=== PATIENT | male | born 1955 | race Caucasian/White ===

== ENCOUNTER 2016-07-25 00:31 | Observation (INO) | payer OTHER ==
[2016-07-25] VITALS (15 sets, daily range): BP systolic 109–145; BP diastolic 76–97; PULSE 61–138; RESP 16–18; TEMP 97.9; O2SAT 95–99
[~2016-07-25 00:31] MED LIST: AMLO5TAB2 PO; LOVA10TA PO
[2016-07-25] MEDS ORDERED: LISI10TA3 PO (01:15)
[2016-07-25] MEDS ORDERED: CLON0.1T PO (01:16)
[2016-07-25] MEDS ORDERED: DILTIAZEM INJ 125 MG in SODIUM CHLORIDE 0.9% INJ 100 ML IV SCH (02:15)
[2016-07-25] MEDS ORDERED: DILTIAZEM HCL 25 MG/5 ML VIAL IV ONE ×2 (02:15)
[2016-07-25] MEDS ORDERED: SODIUM CHLORIDE 0.9% FLUSH 5 ML FLUSH IVF PRN (02:15)
--- NOTE | 2016-07-25 02:28 | RADRPT ---
EXAM DATE/TIME: 07/25/2016 02:21 [facility] COMPARISON: CHEST SINGLE AP, June 18, 2016, 23:33. INDICATIONS : Short of breath. Seizure. MEDICAL HISTORY : None. SURGICAL HISTORY : None. ENCOUNTER: Initial ACUITY: 1 day PAIN SCORE: 0/10 LOCATION: Bilateral chest FINDINGS: A single view of the chest demonstrates the lungs to be symmetrically aerated without evidence of mas s, infiltrate or effusion. The cardiomediastinal contours are unremarkable. Osseous structures are intact. Old stable fracture of the right clavicle. No new or significant changes. CONCLUSION: No acute disease. No significant change has occurred. Jm Cadet MD on July 25, 2016 at 2:26 Board Certified Radiologist. This report was verified electronically.
[2016-07-25 02:36] LABS: AUTOMATED NEUTROPHIL # 9.9 TH/MM3 (1.8-7.7); BASOPHIL # 0.1 TH/MM3 (0-0.2); BASOPHIL % 0.5 % (0.0-2.0); EOSINOPHIL % 0.4 % (0.0-4.0); HEMATOCRIT 43.7 % (39.0-51.0); HEMO FLAGS DIFF FINAL; LYMPH % 13.6 % (9.0-44.0); LYMPHOCYTE # 1.8 TH/MM3 (1.0-4.8); MEAN CELL VOLUME 88.2 FL (80.0-100.0); MONO % 9.8 % (0.0-8.0); NEUT % 75.7 % (16.0-70.0); PLATELET COUNT 215 TH/MM3 (150-450); RED BLOOD COUNT 4.95 MIL/MM3 (4.50-5.90); RED CELL DISTRIBUTION WIDTH 13.7 % (11.6-17.2)
[2016-07-25 02:48] LABS: CREATINE KINASE 278 U/L (39-308)
[2016-07-25 02:49] LABS: APTT (PATIENT) 23.9 SEC (24.3-30.1); PROTHROMBIN TIME - PATIENT 10.7 SEC (9.8-11.6)
[2016-07-25 02:53] LABS: ANION GAP 8 MEQ/L (5-15); BICARBONATE 29.2 MEQ/L (21.0-32.0); BLOOD UREA NITROGEN 32 MG/DL (7-18); CHLORIDE 100 MEQ/L (98-107); GLOMERULAR FILTRATION RATE 36 ML/MIN (>89); POTASSIUM 5.2 MEQ/L (3.5-5.1); SODIUM (NA) 137 MEQ/L (136-145)
[2016-07-25 03:01] LABS: CKMB 4.4 NG/ML (0.5-3.6)
--- NOTE | 2016-07-25 03:27 | PD ---
HPI Chief Complaint: Seizure Time Seen by Provider: 01:20 Travel History International Travel<30 days: No Contact w/Intl Traveler<30days: No Traveled to known affect area: No History of Present Illness HPI The patient's 61 years old. He arrives to ER by private vehicle. He had a seizure-like event tonight. witnessed tonic-clonic activity involving all 4 extremities. He was unresponsive for at least 2-3 minutes. Reportedly he fell out of bed striking his right lower lip causing some bleeding and swelling. No fecal or urinary incontinence was observed. Evidently he had a syncope event about one month ago and was admitted here for evaluation of the same. The somewhat fixated on amlodipine as the source of all his ailments. EMS obtained an EKG on scene revealing A. fib with RVR at a rate of about 100. The blood pressure per EMS record was about 120/80. He refused EMS transport and the convinced him to come. No drug alcohol abuse. History Past Medical History Tetanus Vaccination: < 5 Years Influenza Vaccination: No Past Surgical History Surgical History: No Previous Surgery Social History Alcohol Use: No Tobacco Use: No Allergies-Medications (Allergen,Severity, Reaction): Coded Allergies: No Known Allergies (Unverified , 07/25/16) Reported Meds & Prescriptions Reported Meds & Active Scripts Active Reported Clonidine (Clonidine HCl) 0.1 Mg Tab 0.1 Mg PO Q6HR PRN Lisinopril 10 Mg Tab 10 Mg PO DAILY Lovastatin 10 Mg Tab 10 Mg PO DAILY Review of Systems Except as stated in HPI: all other systems reviewed are Neg Musculoskeletal: Positive: Other (left foot injury with post op boot) Physical Exam Narrative GENERAL: 61-year-old male pleasant well-nourished well-developed speaking full sentences SKIN: Warm and dry. HEAD: Atraumatic. Normocephalic. EYES: Pupils equal and round. No scleral icterus. No injection or drainage. ENT: No nasal bleeding or discharge. Mucous membranes pink and moist. Ecchymosis about the right lower lip with swelling. NECK: Trachea midline. No JVD. CARDIOVASCULAR: Tachycardia. Irregular rhythm. RESP: No accessory muscle use. Clear to auscultation. Breath sounds equal bilaterally. GASTROINTESTINAL: Abdomen soft, non-tender, nondistended. Hepatic and splenic margins not palpable. MUSCULOSKELETAL: Left lower extremity postoperative boot present. No gross abnormality otherwise. NEUROLOGICAL: Awake and alert. No obvious cranial nerve deficits. Motor grossly within normal limits. Five out of 5 muscle strength in the arms and legs. Normal speech. PSYCHIATRIC: Appropriate mood and affect; insight and judgment normal. Data Data Last Documented VS Vital Signs Date Time Temp Pulse Resp B/P Pulse Ox O2 Delivery O2 Flow Rate FiO2 07/25/16 02:44 130/83 135/79 07/25/16 02:44 16 96 Room Air 07/25/16 02:01 125 07/25/16 00:35 97.9 Orders Electrocardiogram (07/25/16 02:06) Basic Metabolic Panel (Bmp) (07/25/16 02:06) Ckmb (Isoenzyme) Profile (07/25/16 02:06) Complete Blood Count With Diff (07/25/16 02:06) Magnesium (Mg) (07/25/16 02:06) Prothrombin Time / Inr (Pt) (07/25/16 02:06) Act Partial Throm Time (Ptt) (07/25/16 02:06) Troponin I (07/25/16 02:06) Chest, Single Ap (07/25/16 02:06) Ecg Monitoring (07/25/16 02:06) Bilateral Bp Monitoring (07/25/16 02:06) Iv Access Insert/Monitor (07/25/16 02:06) Oximetry (07/25/16 02:06) Oxygen Administration (07/25/16 02:06) Sodium Chloride 0.9% Flush (Ns Flush) (07/25/16 02:15) Drug Screen, Random Urine (07/25/16 02:06) Alcohol (Ethanol) (07/25/16 02:06) Diltiazem Inj (Cardizem Inj) (07/25/16 02:15) Diltiazem Inj (Cardizem Inj) (07/25/16 02:15) Diltiazem Inj (Cardizem Inj) (07/25/16 02:15) CKMB (07/25/16 02:25) CKMB% (07/25/16 02:25) Admit Order (Ed Use Only) (07/25/16 03:27) Ct Brain W/O Iv Contrast(Rout) (07/25/16 03:28) Labs Laboratory Tests Test 07/25/16 07/25/16 02:25 03:20 White Blood Count 13.0 TH/MM3 Red Blood Count 4.95 MIL/MM3 Hemoglobin 14.8 GM/DL Hematocrit 43.7 % Mean Corpuscular Volume 88.2 FL Mean Corpuscular Hemoglobin 30.0 PG Mean Corpuscular Hemoglobin 34.0 % Concent Red Cell Distribution Width 13.7 % Platelet Count 215 TH/MM3 Mean Platelet Volume 9.4 FL Neutrophils (%) (Auto) 75.7 % Lymphocytes (%) (Auto) 13.6 % Monocytes (%) (Auto) 9.8 % Eosinophils (%) (Auto) 0.4 % Basophils (%) (Auto) 0.5 % Neutrophils # (Auto) 9.9 TH/MM3 Lymphocytes # (Auto) 1.8 TH/MM3 Monocytes # (Auto) 1.3 TH/MM3 Eosinophils # (Auto) 0.0 TH/MM3 Basophils # (Auto) 0.1 TH/MM3 CBC Comment DIFF FINAL Differential Comment Prothrombin Time 10.7 SEC Prothromb Time International 1.0 RATIO Ratio Activated Partial 23.9 SEC Thromboplast Time Sodium Level 137 MEQ/L Potassium Level 5.2 MEQ/L Chloride Level 100 MEQ/L Carbon Dioxide Level 29.2 MEQ/L Anion Gap 8 MEQ/L Blood Urea Nitrogen 32 MG/DL Creatinine 1.90 MG/DL Estimat Glomerular Filtration 36 ML/MIN Rate Random Glucose 129 MG/DL Calcium Level 8.8 MG/DL Magnesium Level 2.0 MG/DL Total Creatine Kinase 278 U/L Creatine Kinase MB 4.4 NG/ML Troponin I 0.05 NG/ML Ethyl Alcohol Level LESS THAN 3 MG/DL Urine Opiates Screen NEG Urine Barbiturates Screen NEG Urine Amphetamines Screen NEG Urine Benzodiazepines Screen NEG Urine Cocaine Screen NEG Urine Cannabinoids Screen NEG MDM Medical Decision Making Medical Screen Exam Complete: Yes Emergency Medical Condition: Yes Medical Record Reviewed: Yes Differential Diagnosis Arrhythmia, seizure, electrolyte imbalance, metabolic disturbance, intracranial pathology, acute coronary syndrome Narrative Course CBC & BMP Diagram 07/25/16 02:25 Tn 0.04 Toxicology perdue-negative EtOH negative INR 1.0 EKG reveals atrial fibrillation with a rate about 120 Last 24 hours Impressions Chest X-Ray 07/25/16 0206 Signed Impressions: Service Date/Time: Monday, July 25, 2016 02:21 - CONCLUSION: No acute disease. No significant change has occurred. Jm Cadet MD Head CT is unremarkable 20 mg of diltiazem given and the heart rate decreased to about 80 from 130s. The patient has a troponin 0.04 admission for further care and cardiology evaluation considered appropriate. Aspirin given. d/w Dr Clark. Diagnosis Primary Impression: Atrial fibrillation with rapid ventricular response Additional Impressions: Renal insufficiency Seizure Admitting Information Admitting Physician Requests: Observation Bill De La Rosa MD Jul 25, 2016 03:27
[2016-07-25 03:41] LABS: AMPHETAMINE, URINE NEG (NEG); BARBITURATES, URINE NEG (NEG); COCAINE, URINE NEG (NEG)
[2016-07-25] MEDS ORDERED: SODIUM CHLORIDE 0.9% FLUSH 5 ML FLUSH FLUSH PRN (03:45)
--- NOTE | 2016-07-25 04:12 | RADRPT ---
EXAM DATE/TIME: 07/25/2016 04:01 [facility] COMPARISON: CT BRAIN W/O CONTRAST, June 18, 2016, 23:45. INDICATIONS : Seizures. RADIATION DOSE: 42.68 CTDIvol (mGy) MEDICAL HISTORY : Hypertension. SURGICAL HISTORY : None. ENCOUNTER: Initial ACUITY: 1 day PAIN SCALE: 0/10 LOCATION: cranial TECHNIQUE: Multiple contiguous axial images were obtained of the head. Using automated exposure control and adj ustment of the mA and/or kV according to patient size, radiation dose was kept as low as reasonably a chievable to obtain optimal diagnostic quality images. FINDINGS: CEREBRUM: The ventricles are normal for age. No evidence of midline shift, mass lesion, hemorrhage or acute in farction. No extra-axial fluid collections are seen. POSTERIOR FOSSA: The cerebellum and brainstem are intact. The 4th ventricle is midline. The cerebellopontine angle i s unremarkable. EXTRACRANIAL: The visualized portion of the orbits is intact. 1.2 cm sebaceous cyst along the posterior upper neck SKULL: The calvaria is intact. No evidence of skull fracture. CONCLUSION: Unremarkable and stable CT brain compared to the prior study. Jm Cadet MD on July 25, 2016 at 4:09 Board Certified Radiologist. This report was verified electronically.
[2016-07-25] MEDS ORDERED: ASPIRIN 325 MG TAB PO ONE (04:30)
[2016-07-25 06:11] LABS: BICARBONATE 28.3 MEQ/L (21.0-32.0); POTASSIUM 4.2 MEQ/L (3.5-5.1)
--- NOTE | 2016-07-25 07:53 | PD.CONS ---
HPI Service CV Consult Requested By Reason for Consult a-fib Primary Care Physician Elisa Beth DO History of Present Illness Here with HTN and hyperlipidemia for a syncopal episode and a-fib RVR. He states he has been treated for HTN for some time now. He was on switched from lisinopril to amlodipine recently and had side effect on the amlodipine of fatigue and tremors. He went back to the lisinopril and the side effects resolved after about a week. On the night of this syncope his checked his blood pressure and is diastolic pressure was over 100 mmHg and she gave him an additional clonidine. It is after this when he had the event. He denies any chest pain, shortness of breath or palpitations. He does say the after he eats a large meal he has chest pain that radiates up his chest and is associated with fatigue and not feeling well. He never has chest pain with exertion. Review of Systems Consitutional: DENIES: Fatigue, Fever, Chills, Weight gain, Weight loss Eyes: DENIES: Amaurosis Fugax, Change in vision HEENT: DENIES: Lightheadedness, Change in hearing Respiratory: DENIES: See HPI, Cough, Snoring, Shortness of breath, Wheezing, Sputum production Cardiovascular: COMPLAINS OF: See HPI Gastrointestinal: DENIES: Nausea, Vomiting, Change in bowel habits, Reflux, Bloody stools, Melena Genitourinary: DENIES: Urinary incontinence, Difficulty voiding Integumentary: DENIES: Rash Neurologic: DENIES: Tingling or numbness, Memory problems, Poor Balance, Stroke symptoms Musculoskeletal: DENIES: Joint pain, Muscle pain, Limited range of motion, Back pain Psychiatric: DENIES: Anxiety, Depression, Sleep disturbances Hematologic: DENIES: Bruising tendencies, Bleeding tendencies Endocrine: DENIES: Weight gain, Weight loss, Thyroid disease Past Family Social History Allergies: Coded Allergies: No Known Allergies (Unverified , 07/25/16) Past Medical History see HPI Past Surgical History none Reported Medications Clonidine (Clonidine HCl) 0.1 Mg Tab 0.1 Mg PO Q6HR PRN Lisinopril 10 Mg Tab 10 Mg PO DAILY Lovastatin 10 Mg Tab 10 Mg PO DAILY Family History noncontributory Social History Smoked for 2 years in college Denies alcohol or substance abuse Physical Exam Vital Signs Vital Signs Date Time Temp Pulse Resp B/P Pulse Ox O2 Delivery O2 Flow Rate FiO2 07/25/16 05:47 83 16 126/84 95 Room Air 07/25/16 04:09 103 16 129/91 99 Room Air 07/25/16 02:44 130/83 135/79 07/25/16 02:44 16 96 Room Air 07/25/16 02:44 97 Room Air 07/25/16 02:01 125 16 132/86 97 Room Air 07/25/16 01:56 119 16 96 Room Air 07/25/16 00:35 97.9 138 16 129/97 97 Room Air Physical Exam GENERAL: Well-nourished, well-developed patient in no apparent distress. NECK: No JVD. No carotid bruit. CARDIOVASCULAR: IR IR S1/S2 no murmur, rub, or gallop. RESPIRATORY: No accessory muscle use. Clear to auscultation. Breath sounds equal bilaterally. GASTROINTESTINAL: Abdomen soft, non-tender, nondistended. MUSCULOSKELETAL: Extremities without clubbing, cyanosis, or edema. Laboratory Laboratory Tests Test 07/25/16 07/25/16 07/25/16 02:25 03:20 04:44 White Blood Count 13.0 Red Blood Count 4.95 Hemoglobin 14.8 Hematocrit 43.7 Mean Corpuscular Volume 88.2 Mean Corpuscular Hemoglobin 30.0 Mean Corpuscular Hemoglobin 34.0 Concent Red Cell Distribution Width 13.7 Platelet Count 215 Mean Platelet Volume 9.4 Neutrophils (%) (Auto) 75.7 Lymphocytes (%) (Auto) 13.6 Monocytes (%) (Auto) 9.8 Eosinophils (%) (Auto) 0.4 Basophils (%) (Auto) 0.5 Neutrophils # (Auto) 9.9 Lymphocytes # (Auto) 1.8 Monocytes # (Auto) 1.3 Eosinophils # (Auto) 0.0 Basophils # (Auto) 0.1 CBC Comment DIFF FINAL Differential Comment Prothrombin Time 10.7 Prothromb Time International 1.0 Ratio Activated Partial 23.9 Thromboplast Time Sodium Level 137 138 Potassium Level 5.2 4.2 Chloride Level 100 101 Carbon Dioxide Level 29.2 28.3 Anion Gap 8 9 Blood Urea Nitrogen 32 29 Creatinine 1.90 1.66 Estimat Glomerular Filtration 36 43 Rate Random Glucose 129 114 Calcium Level 8.8 8.9 Magnesium Level 2.0 Total Creatine Kinase 278 235 Creatine Kinase MB 4.4 Troponin I 0.05 0.07 Ethyl Alcohol Level LESS THAN 3 Urine Opiates Screen NEG Urine Barbiturates Screen NEG Urine Amphetamines Screen NEG Urine Benzodiazepines Screen NEG Urine Cocaine Screen NEG Urine Cannabinoids Screen NEG Result Diagram: 07/25/16 0225 07/25/16 0444 Assessment and Plan Problem List: (1) Syncope (2) Atrial fibrillation with rapid ventricular response (3) Renal insufficiency Code Status A-fib RVR - start metoprolol 50 mg BID and wean diltiazem to off, get 2D echo atypical chest pain - troponin is likely demand mediated with his a-fib RVR, With his risk factors and atypical chest pain we will get a Lexiscan stress test HTN - we will wait to see what is pressure does with the metoprolol. We should stop the DAI-I with he renal dysfunction El Potter Jul 25, 2016 07:53
[2016-07-25] MEDS: METOPROLOL TARTRATE 50 MG TAB PO SCH ×2 (08:59→21:00)
[2016-07-25] MEDS: SODIUM CHLORIDE 0.9% FLUSH 5 ML FLUSH FLUSH SCH ×2 (09:00→21:00)
--- NOTE | 2016-07-25 10:19 | HHI.HP ---
HPI Service [facility] Hospitalists Primary Care Physician Elisa Beth DO Admission Diagnosis AFib RVR; Seizure Chief Complaint: Seizure Travel History International Travel<30 Days: No Contact w/Intl Traveler <30 Da: No Traveled to Known Affected Are: No History of Present Illness Mr. Overton is a pleasant 61 y/o WM with HTN and hyperlipidemia. He presented to the ED at [facility] [place] on 07/24/16 after a possible seizure episode at home. Pts provides the majority of the history. She states that he had previously been hospitalized in 06/2016 after a syncopal episode which was related to his BP medications. He was taken off his Lisinopril/HCTZ at that time and started on Amlodipine. Pt states that after he was started on the Amlodipine that he started having some "shaking" episodes where he would have episodes of full body shaking that would occur sporadically. Pt was taken off the Amlodipine on and had not had any issues with these shaking episodes since then. Pt was restarted on Lisinopril 5mg po BID and Clonidine PRN. Pt states that he takes the clonidine periodically if his diastolic reading is greater than 100. Yesterday evening his diastolic BP was 106 and he took a Clonidine around 6pm. Then around 7:30pm he took his Lisinopril 5mg evening dose. Pt states that he started having some indigestion and took some TUMS and then around 10:00pm the pt had sudden onset of severe shaking what sounds like tonic-clonic type movement. His moved him to the floor and the event lasted about 1-2 minutes. She states that once this event ended that the pt was not confused but he could not remember what had just happened. He denies any chest pain, shortness of breath or palpitations. Pt was noted to be in A. fib RVR in the ED. Pt was started on a Cardizem gtt. His CE were mildly elevated but flat. He has been seen by Cardiology and is planned for Lexiscan today. Pt has been switched over to Metoprolol po and weaned off the Cardizem gtt. Review of Systems Constitutional: DENIES: Fever, Chills Eyes: DENIES: Vision loss Ears, nose, mouth, throat: DENIES: Hearing loss Respiratory: DENIES: Cough, Sputum production Cardiovascular: DENIES: Chest pain, Palpitations Gastrointestinal: COMPLAINS OF: Reflux, DENIES: Abdominal pain, Constipation, Nausea, Vomiting Genitourinary: DENIES: Dysuria, Nocturia Musculoskeletal: DENIES: Back pain, Neck pain Integumentary: DENIES: Rash Neurologic: COMPLAINS OF: Seizures, DENIES: Abnormal gait, Headache, Localized weakness, Paresthesias, Speech Problems Psychiatric: DENIES: Confusion, Depression Past Family Social History Past Medical History HTN Hyperlipidemia 2D echo (06/19/16): - Estimated EF 55-60% - PA peak pressure 39mmHg Past Surgical History None reported Reported Medications Clonidine (Clonidine HCl) 0.1 Mg PO Q6HR PRN Lisinopril 5MG PO BID Lovastatin 10 Mg PO DAILY Allergies: Coded Allergies: No Known Allergies (Unverified , 07/25/16) Family History Noncontributory Social History Denies any tobacco or alcohol use Occasional marijuana use, but not for the last 2 weeks Physical Exam Vital Signs Vital Signs Date Time Temp Pulse Resp B/P Pulse Ox O2 Delivery O2 Flow Rate FiO2 07/25/16 09:59 61 16 99 Room Air 07/25/16 08:59 88 145/91 07/25/16 07:58 96 16 130/85 98 Room Air 07/25/16 05:47 83 16 126/84 95 Room Air 07/25/16 04:09 103 16 129/91 99 Room Air 07/25/16 02:44 130/83 135/79 07/25/16 02:44 16 96 Room Air 07/25/16 02:44 97 Room Air 07/25/16 02:01 125 16 132/86 97 Room Air 07/25/16 01:56 119 16 96 Room Air 07/25/16 00:35 97.9 138 16 129/97 97 Room Air Physical Exam GENERAL: This is a well-nourished, well-developed patient, in no apparent distress. HEENT: Atraumatic. Normocephalic. No temporal or scalp tenderness. No scleral icterus. Airway patent. NECK: Trachea midline, supple, nontender. CARDIO: Regular RESP: CTA bilaterally. No wheezes, rales, or rhonchi. ABD: +BS, soft, non-tender, nondistended. EXT: Extremities without clubbing, cyanosis, or edema. NEURO: Awake and alert. Motor and sensory grossly within normal limits. Normal speech. Laboratory Laboratory Tests Test 07/25/16 07/25/16 07/25/16 07/25/16 02:25 03:20 04:44 08:37 White Blood Count 13.0 Red Blood Count 4.95 Hemoglobin 14.8 Hematocrit 43.7 Mean Corpuscular Volume 88.2 Mean Corpuscular Hemoglobin 30.0 Mean Corpuscular Hemoglobin 34.0 Concent Red Cell Distribution Width 13.7 Platelet Count 215 Mean Platelet Volume 9.4 Neutrophils (%) (Auto) 75.7 Lymphocytes (%) (Auto) 13.6 Monocytes (%) (Auto) 9.8 Eosinophils (%) (Auto) 0.4 Basophils (%) (Auto) 0.5 Neutrophils # (Auto) 9.9 Lymphocytes # (Auto) 1.8 Monocytes # (Auto) 1.3 Eosinophils # (Auto) 0.0 Basophils # (Auto) 0.1 CBC Comment DIFF FINAL Differential Comment Prothrombin Time 10.7 Prothromb Time International 1.0 Ratio Activated Partial 23.9 Thromboplast Time Sodium Level 137 138 Potassium Level 5.2 4.2 Chloride Level 100 101 Carbon Dioxide Level 29.2 28.3 Anion Gap 8 9 Blood Urea Nitrogen 32 29 Creatinine 1.90 1.66 Estimat Glomerular Filtration 36 43 Rate Random Glucose 129 114 Calcium Level 8.8 8.9 Magnesium Level 2.0 Total Creatine Kinase 278 235 211 Creatine Kinase MB 4.4 Troponin I 0.05 0.07 0.07 Ethyl Alcohol Level LESS THAN 3 Urine Opiates Screen NEG Urine Barbiturates Screen NEG Urine Amphetamines Screen NEG Urine Benzodiazepines Screen NEG Urine Cocaine Screen NEG Urine Cannabinoids Screen NEG Thyroid Stimulating Hormone 1.190 3rd Gen Result Diagram: 07/25/165 07/25/16 0444 Imaging Last Impressions Head CT 07/25/16 0328 Signed Impressions: Service Date/Time: Monday, July 25, 2016 04:01 - CONCLUSION: Unremarkable and stable CT brain compared to the prior study. Jm Cadet MD Chest X-Ray 07/25/16 0206 Signed Impressions: Service Date/Time: Monday, July 25, 2016 02:21 - CONCLUSION: No acute disease. No significant change has occurred. Jm Cadet MD Septic Shock Reassessment Heart: Regular rate and rhythm Lungs: Clear Skin: Warm Peripheral Pulses: Bounding Right Radial Bounding Left Radial Bounding Right Popliteal Bounding Left Popliteal Bounding Right Dorsalis Pedis Bounding Left Dorsalis Pedis Bounding Right Posterior Tibial Bounding Left Posterior Tibial Assessment and Plan Problem List: (1) Seizure Status: Acute Plan: - Pt reported some sore of seizure-like event vs. convulsive syncope - No previous hx of seizures, pt did not appear to be post-ictal, no loss of bowel or bladder function - EEG was just completed, await results - Seizure precautions. - Consult Neurology - Ativan PRN - DVT prophylaxis (2) Atrial fibrillation with rapid ventricular response Status: Acute Plan: - Pt with A. fib RVR, onset is unclear. - Pt was started on Cardizem gtt and then Metoprolol 50mg po Q12H and was weaned off the Cardizem. - Pt to have Lexiscan today - Telemetry - CHADSVASc score of 1 - Pt was on ASA 81mg po daily at home (3) Renal insufficiency Status: Chronic Plan: - Pt with some noted renal insufficiency - He had an outpt workup which reportedly showed hydronephrosis and he has an appt with Urology in 2 days. Assessment and Plan Patient examined. Assessment and plan formulated with Sherrell Mayfield PA-C. I agree with the above. possible hypotension from medication leading to convulsive syncope. afib/rvr new. controlled. currrently hr/bp controlled on metoprolol. nikita neg for ischemia but some reduced lvf. eeg nml. cards following.renal insuff noted. pt says he has some hydro and f/u dr Leblanc for evaluation. Sherrell Mayfield Jul 25, 2016 10:19 Dru Yuan MD Jul 25, 2016 22:07
[2016-07-25] MEDS ORDERED: LORazepam 2 MG/ML VIAL IV PUSH PRN (13:00)
[2016-07-25] MEDS ORDERED: REGADENOSON INJ 0.4 MG/5 ML SYR ONE (14:41)
--- NOTE | 2016-07-25 15:58 | RADRPT ---
EXAM DATE/TIME: 07/25/2016 14:03 [facility] COMPARISON: CHEST SINGLE AP, July 25, 2016, 2:21. INDICATIONS : Syncopal episodes. Abnormal EKG. DOSE: 25.7 mCi Tc99m Myoview at stress. 8.1 mCi Tc99m Myoview at rest. 0.4 mg Lexiscan STRESS SYMPTOMS: Anxious. EJECTION FRACTION: 46% MEDICAL HISTORY : Hypertension. Renal insufficiency. SURGICAL HISTORY : None. ENCOUNTER: Initial ACUITY: 1 day PAIN SCALE: 0/10 LOCATION: Substernal chest TECHNIQUE: The patient underwent pharmacologic stress with infusion of prescribed dose. Continuous ECG tracing was monitored during stress. Gated SPECT imaging was performed after stress and conventional SPECT i maging was performed at rest. The examination was performed on a SPECT/CT scanner, both attenuation and non-corrected datasets were reviewed. FINDINGS: DISTRIBUTION: The maximum perfused segment at stress is in the anterior wall. PERFUSION STUDY: The pattern of perfusion at stress is within normal limits. GATED STUDY: There is mild generalized hypokinesia CONCLUSION: No perfusion defects. Slightly decreased ejection fraction of 46% with mild generalized hypokinesia s uggesting cardiomyopathy. RISK CATEGORY: Low (<1% Annual Mortality Rate) Wallace Mathis MD on July 25, 2016 at 15:54 Board Certified Radiologist. This report was verified electronically.
--- NOTE | 2016-07-25 18:06 | EKG ---
Date Performed: 07/25/2016 Time Performed: 02:24:03 PTAGE: 61 years EKG: PROBABLE ATRIAL FIBRILLATION WITH RAPID VENTRICULAR RATE SEPTAL MYOCARDIAL INFARCTION Nonsp ecific ST-T wave changes. When compared to previous tracing, the patient now appears to Be in atrial fibrillation with rapid ventricular rate. ABNORMAL ECG PREVIOUS TRACING : 06/18/2016 23.31 DOCTOR: Kiana Jerome Interpretating Date/Time 07/25/2016 18:05:52
--- NOTE | 2016-07-25 18:08 | EKG ---
Date Performed: 07/25/2016 Time Performed: 08:31:25 PTAGE: 61 years EKG: ATRIAL FIBRILLATION WITH CONTROLLED VENTRICULAR RATE SEPTAL MYOCARDIAL INFARCTION Nonspecif ic ST-T wave changes. When compared to previous tracing, the patient is now rate Controlled. ABNORMAL ECG PREVIOUS TRACING : 07/25/2016 02.24 DOCTOR: Kiana Jerome Interpretating Date/Time 07/25/2016 18:07:36
--- NOTE | 2016-07-25 18:45 | MG ---
cc: TJ CROWLEY M.D. Sex: M DATE OF STUDY: 07/25/2016 REQUESTING PHYSICIAN: Dr. Clark. HISTORY: An EEG was obtained on this 61 year-old patient with a history of seizure-like activity. MEDICATIONS: Diltiazem. Aspirin. DESCRIPTION: The patient is awake during the study. There is a lot of 10-12 per second alpha rhythms in the central and posterior head regions. There is low amplitude beta activity frontally. Some mild theta rhythms are seen and seems to correlate with probable early drowsiness. The patient later on is obviously drowsy and there is more beta activity and more theta rhythms. Photic stimulation shows bilateral driving response. Hyperventilation was not performed. INTERPRETATION Normal awake and drowsy EEG. Tj Crowley MD [facility] /6:13 PM /6:26 PM
[2016-07-26] VITALS (7 sets, daily range): BP systolic 110–148; BP diastolic 66–96; PULSE 58–87; RESP 17–20; TEMP 97.9–98.2; O2SAT 96–100
[2016-07-26 05:24] LABS: AUTOMATED NEUTROPHIL # 5.1 TH/MM3 (1.8-7.7); BASOPHIL # 0.1 TH/MM3 (0-0.2); BASOPHIL % 0.5 % (0.0-2.0); EOSINOPHIL # 0.2 TH/MM3 (0-0.4); EOSINOPHIL % 1.9 % (0.0-4.0); HEMATOCRIT 44.9 % (39.0-51.0); HEMO FLAGS DIFF FINAL; LYMPH % 33.5 % (9.0-44.0); LYMPHOCYTE # 3.3 TH/MM3 (1.0-4.8); MEAN CELL VOLUME 89.6 FL (80.0-100.0); MEAN CORPUSCULAR HEMOGLOBIN 29.8 PG (27.0-34.0); MEAN CORPUSCULAR HGB CONC 33.3 % (32.0-36.0); MONO % 11.6 % (0.0-8.0); NEUT % 52.5 % (16.0-70.0); PLATELET COUNT 218 TH/MM3 (150-450); RED BLOOD COUNT 5.01 MIL/MM3 (4.50-5.90); RED CELL DISTRIBUTION WIDTH 13.5 % (11.6-17.2); WHITE BLOOD COUNT 9.8 TH/MM3 (4.0-11.0)
[2016-07-26 05:47] LABS: BICARBONATE 30.3 MEQ/L (21.0-32.0); MAGNESIUM 2.1 MG/DL (1.5-2.5); POTASSIUM 4.6 MEQ/L (3.5-5.1)
--- NOTE | 2016-07-26 07:48 | PD.CARD.PN ---
Subjective Subjective Remarks no CV complaints Objective Vital Signs / I&O Vital Signs Date Time Temp Pulse Resp B/P Pulse Ox O2 Delivery O2 Flow Rate FiO2 07/26/16 05:11 98.0 67 17 110/66 96 07/26/16 00:47 64 07/26/16 00:29 97.9 87 18 133/77 98 07/25/16 19:36 97.9 65 16 109/76 97 07/25/16 17:11 87 07/25/16 16:03 99 18 138/87 97 07/25/16 11:42 68 16 136/86 98 Room Air 07/25/16 11:25 71 16 97 Room Air 07/25/16 10:46 16 98 Room Air 07/25/16 10:45 62 16 124/90 98 Room Air 07/25/16 10:19 64 07/25/16 09:59 61 16 99 Room Air 07/25/16 08:59 88 145/91 07/25/16 07:58 96 16 130/85 98 Room Air Physical Exam GENERAL: Well-nourished, well-developed patient in no apparent distress. NECK: No JVD. No carotid bruit. CARDIOVASCULAR: Regular rate and rhythm. S1/S2 no murmur, rub, or gallop. RESPIRATORY: No accessory muscle use. Clear to auscultation. Breath sounds equal bilaterally. GASTROINTESTINAL: Abdomen soft, non-tender, nondistended. MUSCULOSKELETAL: Extremities without clubbing, cyanosis, or edema. Laboratory Laboratory Tests Test 07/25/16 07/26/16 08:37 04:50 Total Creatine Kinase 211 U/L Troponin I 0.07 NG/ML Thyroid Stimulating Hormone 1.190 uIU/ML 3rd Gen White Blood Count 9.8 TH/MM3 Red Blood Count 5.01 MIL/MM3 Hemoglobin 14.9 GM/DL Hematocrit 44.9 % Mean Corpuscular Volume 89.6 FL Mean Corpuscular Hemoglobin 29.8 PG Mean Corpuscular Hemoglobin 33.3 % Concent Red Cell Distribution Width 13.5 % Platelet Count 218 TH/MM3 Mean Platelet Volume 9.3 FL Neutrophils (%) (Auto) 52.5 % Lymphocytes (%) (Auto) 33.5 % Monocytes (%) (Auto) 11.6 % Eosinophils (%) (Auto) 1.9 % Basophils (%) (Auto) 0.5 % Neutrophils # (Auto) 5.1 TH/MM3 Lymphocytes # (Auto) 3.3 TH/MM3 Monocytes # (Auto) 1.1 TH/MM3 Eosinophils # (Auto) 0.2 TH/MM3 Basophils # (Auto) 0.1 TH/MM3 CBC Comment DIFF FINAL Differential Comment Sodium Level 139 MEQ/L Potassium Level 4.6 MEQ/L Chloride Level 104 MEQ/L Carbon Dioxide Level 30.3 MEQ/L Anion Gap 5 MEQ/L Blood Urea Nitrogen 22 MG/DL Creatinine 1.43 MG/DL Estimat Glomerular Filtration 51 ML/MIN Rate Random Glucose 97 MG/DL Calcium Level 9.0 MG/DL Magnesium Level 2.1 MG/DL Assessment and Plan Problem List: (1) Syncope (2) Atrial fibrillation with rapid ventricular response (3) Renal insufficiency Assessment and Plan a-fib - converted to SR. Stress test shows no evidence for ischemia EF 46% await 2D echo to confirm EF. If echo normal home today on metoprolol 50 mg BID and d/c prior antihypertensives El Potter Jul 26, 2016 07:48
--- NOTE | 2016-07-26 08:55 | HHI.PR ---
Subjective Remarks No complaints this morning. Pt converted to NSR on telemetry Pt eating and drinking well Ambulating without difficulty Objective Vitals Vital Signs Date Time Temp Pulse Resp B/P Pulse Ox O2 Delivery O2 Flow Rate FiO2 07/26/16 05:11 98.0 67 17 110/66 96 07/26/16 00:47 64 07/26/16 00:29 97.9 87 18 133/77 98 07/25/16 19:36 97.9 65 16 109/76 97 07/25/16 17:11 87 07/25/16 16:03 99 18 138/87 97 07/25/16 11:42 68 16 136/86 98 Room Air 07/25/16 11:25 71 16 97 Room Air 07/25/16 10:46 16 98 Room Air 07/25/16 10:45 62 16 124/90 98 Room Air 07/25/16 10:19 64 07/25/16 09:59 61 16 99 Room Air 07/25/16 08:59 88 145/91 Result Diagram: 07/26/16 0450 07/26/16 0450 Other Results Laboratory Tests Test 07/25/16 07/25/16 07/25/16 07/25/16 02:25 03:20 04:44 08:37 White Blood Count 13.0 TH/MM3 Red Blood Count 4.95 MIL/MM3 Hemoglobin 14.8 GM/DL Hematocrit 43.7 % Mean Corpuscular Volume 88.2 FL Mean Corpuscular Hemoglobin 30.0 PG Mean Corpuscular Hemoglobin 34.0 % Concent Red Cell Distribution Width 13.7 % Platelet Count 215 TH/MM3 Mean Platelet Volume 9.4 FL Neutrophils (%) (Auto) 75.7 % Lymphocytes (%) (Auto) 13.6 % Monocytes (%) (Auto) 9.8 % Eosinophils (%) (Auto) 0.4 % Basophils (%) (Auto) 0.5 % Neutrophils # (Auto) 9.9 TH/MM3 Lymphocytes # (Auto) 1.8 TH/MM3 Monocytes # (Auto) 1.3 TH/MM3 Eosinophils # (Auto) 0.0 TH/MM3 Basophils # (Auto) 0.1 TH/MM3 CBC Comment DIFF FINAL Differential Comment Prothrombin Time 10.7 SEC Prothromb Time International 1.0 RATIO Ratio Activated Partial 23.9 SEC Thromboplast Time Sodium Level 137 MEQ/L 138 MEQ/L Potassium Level 5.2 MEQ/L 4.2 MEQ/L Chloride Level 100 MEQ/L 101 MEQ/L Carbon Dioxide Level 29.2 MEQ/L 28.3 MEQ/L Anion Gap 8 MEQ/L 9 MEQ/L Blood Urea Nitrogen 32 MG/DL 29 MG/DL Creatinine 1.90 MG/DL 1.66 MG/DL Estimat Glomerular Filtration 36 ML/MIN 43 ML/MIN Rate Random Glucose 129 MG/DL 114 MG/DL Calcium Level 8.8 MG/DL 8.9 MG/DL Magnesium Level 2.0 MG/DL Total Creatine Kinase 278 U/L 235 U/L 211 U/L Creatine Kinase MB 4.4 NG/ML Troponin I 0.05 NG/ML 0.07 NG/ML 0.07 NG/ML Ethyl Alcohol Level LESS THAN 3 MG/DL Urine Opiates Screen NEG Urine Barbiturates Screen NEG Urine Amphetamines Screen NEG Urine Benzodiazepines Screen NEG Urine Cocaine Screen NEG Urine Cannabinoids Screen NEG Thyroid Stimulating Hormone 1.190 uIU/ML 3rd Gen Test 07/26/16 04:50 White Blood Count 9.8 TH/MM3 Red Blood Count 5.01 MIL/MM3 Hemoglobin 14.9 GM/DL Hematocrit 44.9 % Mean Corpuscular Volume 89.6 FL Mean Corpuscular Hemoglobin 29.8 PG Mean Corpuscular Hemoglobin 33.3 % Concent Red Cell Distribution Width 13.5 % Platelet Count 218 TH/MM3 Mean Platelet Volume 9.3 FL Neutrophils (%) (Auto) 52.5 % Lymphocytes (%) (Auto) 33.5 % Monocytes (%) (Auto) 11.6 % Eosinophils (%) (Auto) 1.9 % Basophils (%) (Auto) 0.5 % Neutrophils # (Auto) 5.1 TH/MM3 Lymphocytes # (Auto) 3.3 TH/MM3 Monocytes # (Auto) 1.1 TH/MM3 Eosinophils # (Auto) 0.2 TH/MM3 Basophils # (Auto) 0.1 TH/MM3 CBC Comment DIFF FINAL Differential Comment Sodium Level 139 MEQ/L Potassium Level 4.6 MEQ/L Chloride Level 104 MEQ/L Carbon Dioxide Level 30.3 MEQ/L Anion Gap 5 MEQ/L Blood Urea Nitrogen 22 MG/DL Creatinine 1.43 MG/DL Estimat Glomerular Filtration 51 ML/MIN Rate Random Glucose 97 MG/DL Calcium Level 9.0 MG/DL Magnesium Level 2.1 MG/DL Imaging Last Impressions Head CT 07/25/16327 Signed Impressions: Service Date/Time: Monday, July 25, 2016 04:01 - CONCLUSION: Unremarkable and stable CT brain compared to the prior study. Jm Cadet MD Chest X-Ray 07/25/166 Signed Impressions: Service Date/Time: Monday, July 25, 2016 02:21 - CONCLUSION: No acute disease. No significant change has occurred. Jm Cadet MD Myocardial Perfusion Scan Nuc Med 07/25/16 0000 Signed Impressions: Service Date/Time: Monday, July 25, 2016 14:03 - CONCLUSION: No perfusion defects. Slightly decreased ejection fraction of 46%% with mild generalized hypokinesia suggesting cardiomyopathy. RISK CATEGORY: Low (<1%% Annual Mortality Rate) Wallace Mathis MD Last Impressions Head CT 07/25/16327 Signed Impressions: Service Date/Time: Monday, July 25, 2016 04:01 - CONCLUSION: Unremarkable and stable CT brain compared to the prior study. Jm Cadet MD Chest X-Ray 07/25/16205 Signed Impressions: Service Date/Time: Monday, July 25, 2016 02:21 - CONCLUSION: No acute disease. No significant change has occurred. Jm Cadet MD Objective Remarks General: NAD, AAOx3 Chest: CTA bilaterally Cardiac: Regular Abd: +BS, soft ND/NT Ext: No edema A/P Problem List: (1) Seizure Status: Acute Plan: - Pt reported some sore of seizure-like event vs. convulsive syncope - No previous hx of seizures, pt did not appear to be post-ictal, no loss of bowel or bladder function - EEG was negative - Seizure precautions. - Await Neurology consultation - Ativan PRN - DVT prophylaxis (2) Atrial fibrillation with rapid ventricular response Status: Acute Plan: - Pt with A. fib RVR, onset is unclear. - Pt was started on Cardizem gtt and then Metoprolol 50mg po Q12H and was weaned off the Cardizem. - Pt converted to NSR with occasional PVCs on telemetry, some bradycardia during the night into the 40-50's - Lexiscan (07/25) --> No perfusion defects. Slightly decreased ejection fraction of 46% with mild generalized hypokinesia suggesting cardiomyopathy. - 2D echo is pending. - Telemetry - CHADSVASc score of 1 - Pt was on ASA 81mg po daily at home - Pt will be discharged on Metoprolol 50mg po BID (3) Renal insufficiency Status: Chronic Plan: - Pt with some noted renal insufficiency which is improving. - Outpt Renal US (07/06/16) --> Severe hydronephrosis of the right kidney which does not resolve on voiding, large post-void residual of 156cc, enlarged prostate gland, left kidney grossly normal. Assessment and Plan Patient examined. Assessment and plan formulated with Sherrell Mayfield PA-C. I agree with the above. discussed with cardiology. d/c home with f/u f/u neuro metoprolol. ppi for gerd. f/u pcp and then GI if persistent. Sherrell Mayfield Jul 26, 2016 08:55 Dru Yuan MD Jul 26, 2016 16:32
[2016-07-26] MEDS ORDERED: PRAVASTATIN SOD 10 MG TAB PO SCH (09:00)
[2016-07-26] MEDS: METOPROLOL TARTRATE 50 MG TAB PO SCH (09:47)
[2016-07-26] MEDS: SODIUM CHLORIDE 0.9% FLUSH 5 ML FLUSH FLUSH SCH (09:47)
--- NOTE | 2016-07-26 10:21 | MB ---
cc: NILTON POOLE M.D. DATE OF CONSULTATION: 07/26/2016 DATE OF : 1955 REASON FOR CONSULTATION Seizure versus syncope. HISTORY OF PRESENT ILLNESS The patient is a 61-year-old man with a history of hypertension and hyperlipidemia, who came to the ER yesterday presenting with possible seizure at home. His gives most of the history. Apparently he was getting ready for bed and they took his blood pressure. His diastolic was over 100. The gave him an extra dose of clonidine 0.1 mg. He normally takes lisinopril. He was told to take the clonidine p.r.n. should his blood pressure be elevated. Apparently about 11:00/11:30 after the lights were off she felt the whole bed shaking. She put the light on and found him arms clenched, unresponsive and turning cyanotic. She subsequently was able to get him to the floor and called 911. By the time the paramedics came his blood pressure apparently was normal, heart rate was normal and he was awake and alert, not confused. He did not bite his tongue. There was no incontinence. Prior to the event he had a little bit of indigestion and she gave him what she describes as an H2 carlitos Pepcid. It was noted that he was in atrial fibrillation with RVR in the ED and was placed on Cardizem drip. He was seen by cardiology and planned for a Lexiscan and now switched over to metoprolol. Denies any history of head trauma. Denies epilepsy in the past. Denies binge drinking. Denies any new medications. Denies substance abuse. PAST MEDICAL HISTORY 1. Hypertension. 2. Hyperlipidemia. MEDICATIONS Current medicines are: 1. Clonidine 0.1 mg p.r.n. 2. Lisinopril 5 mg b.i.d. 3. Lovastatin 10 mg daily. ALLERGIES None reported. FAMILY HISTORY Noncontributory. SOCIAL HISTORY No tobacco, alcohol or drugs, except for some per chart occasional marijuana, last use two weeks ago. PHYSICAL EXAMINATION VITAL SIGNS: Temperature 98, heart rate 63, respiratory rate 20, blood pressure 145/96. NECK: Supple. No carotid bruits. HEART: Regular at this time. LUNGS: Appear clear. NEUROLOGIC: He is awake and alert. He is fluent. Pupils reactive. Visual rand full. Face symmetrical. Tongue midline. Motor, no drift or leg lag. Does have a broken metatarsal. He is in a boot, but no weakness in the legs. Cerebellar is normal. Gait is withheld. LABORATORY DATA His labs are reviewed. CBC is unremarkable this morning. Chemistries: Creatinine 1.43, BUN 22, GFR 51. Tox screen was negative. Urine unremarkable. IMAGING CT head unremarkable. No acute findings. Chest x-ray: No acute disease. Myocardial perfusion scan: No perfusion defects, slightly decreased EF of 46% with mild generalized hypokinesia suggesting cardiomyopathy. EEG EEG was normal awake. IMPRESSION Possible syncope versus possible seizure due to the syncope without a history of epilepsy. Apparently he was not postictal. At this point in time would continue recommendations per cardiology. If truly he is in paroxysmal atrial fibrillation he may need to be monitored with a loop recorder. I want to get a carotid ultrasound just to make sure there is no high-grade stenosis that may have been a provoking factor. He will have another 2-D echo per chart notes. Already on metoprolol 50 mg twice a day. I agree with daily baby aspirin. I do agree at this point continuing his cardiac workup. Certainly monitoring him for ongoing atrial fibrillation is necessary. 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 MD IVONNE Ding/SHELLI /9:31 AM /10:01 AM
--- NOTE | 2016-07-26 13:35 | RADRPT ---
EXAM DATE/TIME: 07/26/2016 12:30 [facility] COMPARISON: No previous studies available for comparison. INDICATIONS : Syncope. MEDICAL HISTORY : Hypertension. Hypercholesterolemia. Seizures. SURGICAL HISTORY : None. ENCOUNTER: Initial ACUITY: 1 day PAIN SCORE: 0/10 LOCATION: Bilateral neck PEAK SYSTOLIC VELOCITIES (cm/sec): ICA/CCA RATIO: Right: 0.9 Left: 1.1 ICA: Right: 75 Left: 83 CCA: Right: 83 Left: 75 ECA: Right: 76 Left: 94 VERTEBRAL: Right: 50 antegrade Left: 74 antegrade Elevated flow velocities and ICA/CCA ratios have been found to correlate with increased degrees of vessel stenosis, calculated as percentage of diameter relative to a normal segment of distal ICA/CCA FINDINGS: RIGHT CAROTID: No significant stenosis is visualized. The waveforms are within normal limits. LEFT CAROTID: No significant stenosis is visualized. The waveforms are within normal limits. VERTEBRAL ARTERIES: Antegrade flow is seen in both vertebral arteries. MISCELLANEOUS: None. CONCLUSION: Negative for carotid stenosis Simba Dang MD FACR on July 26, 2016 at 13:32 Board Certified Radiologist. This report was verified electronically.
[2016-07-26] MEDS ORDERED: METO-309 PO (16:33)
[2016-07-26] MEDS ORDERED: ASPI81TA11 PO (16:33)
--- NOTE | 2016-07-26 16:34 | HHI.DCPOC ---
Discharge Care Plan Diagnosis: (1) Syncope and collapse (2) Atrial fibrillation with rapid ventricular response (3) Renal insufficiency Goals to Promote Your Health * To prevent worsening of your condition and complications * To maintain your health at the optimal level Directions to Meet Your Goals Take your medications as prescribed Follow your dietary instruction Follow activity as directed Keep your appointments as scheduled Take your immunizations and boosters as scheduled If your symptoms worsen call your PCP, if no PCP go to Urgent Care Center or Emergency Room Smoking is Dangerous to Your Health. Avoid second hand smoke Call the 24-hour hour crisis hotline for domestic abuse at Dru Yuan MD Jul 26, 2016 16:34
[2016-07-26] MEDS ORDERED: PROT40TA PO (16:38)
--- NOTE | 2016-07-26 21:02 | EC ---
Study Study Date:07/26/2016 STUDY CONCLUSIONS SUMMARY - Left ventricle: The cavity size was normal. Systolic function was normal. The estimated ejection fraction was in the range of 55% to 60%. Although no diagnostic regional wall motion abnormality was identified, this possibility cannot be completely excluded on the basis of this study. - Mitral valve: Mild regurgitation. - Tricuspid valve: Mild regurgitation. If LV function is below 40, please consider prescribing an ACEI or ARB or document rationale for non-use. PROCEDURE DATA STUDY STATUS: Elective. Procedure: Transthoracic echocardiography. Image quality was good. Scanning was performed from the parasternal, apical, and subcostal acoustic windows. Study completion: The patient tolerated the procedure well. Transthoracic echocardiography. M-mode, complete 2D, complete spectral Doppler, and color Doppler. Patient status: Inpatient. CARDIAC ANATOMY LEFT VENTRICLE: The cavity size was normal. Systolic function was normal. The estimated ejection fraction was in the range of 55% to 60%. Although no diagnostic regional wall motion abnormality was identified, this possibility cannot be completely excluded on the basis of this study. AORTIC VALVE: The valve appears to be grossly normal. Doppler: There was no stenosis. No significant regurgitation. Valve area: 2.18cm^2 (Vmax). MITRAL VALVE: The valve appears to be grossly normal. Doppler: There was no evidence for stenosis. Mild regurgitation. Peak gradient: 2mm Hg (D). LEFT ATRIUM: The atrium was normal in size. PULMONIC VALVE: Not well visualized. TRICUSPID VALVE: The valve appears to be grossly normal. Doppler: There was no evidence for stenosis. Mild regurgitation. PERICARDIUM: There was no pericardial effusion. BASIC MEASUREMENTS ADULT NORMAL Left ventricle LV internal dimension, ED, chordal level, 49.6 mm 43-52 PLAX LV internal dimension, ES, chordal level, 33.7 mm 23-38 PLAX Fractional shortening, chordal level, PLAX 32 % >29 LV posterior wall thickness, ED 7.3 mm IVS/LVPW ratio, ED 1.16 <1.3 Ventricular septum Septal thickness, ED 8.44 mm Aortic valve Leaflet separation 18 mm 15-26 BASIC MEASUREMENTS ADULT NORMAL Aortic valve Leaflet separation 18 mm 15-26 Aorta Root diameter, ED 30 mm 20-37 Left atrium Anterior-posterior dimension, ES 30 mm 19-40 LA/aortic root ratio 1 DOPPLER MEASUREMENTS ADULT NORMAL Main pulmonary artery Pressure, S 27 mm Hg =30 Aortic valve Peak velocity, S 138 cm/s Valve area, Vmax 2.18 cm^2 Mitral valve Peak E-wave velocity 73.1 cm/s Peak A-wave velocity 57.3 cm/s Deceleration time 197 ms 150-230 Peak gradient, D 2 mm Hg Peak E/A ratio 1.3 Maximal regurgitant velocity 242 cm/s Tricuspid valve Regurgitant peak velocity 229 cm/s Peak RV-RA gradient, S 21 mm Hg Maximal regurgitant velocity 229 cm/s Systemic veins Estimated CVP 10 mm Hg Right ventricle RV pressure, S *31 mm Hg <30 Pulmonic valve Peak velocity, S 96.4 cm/s LEGEND: Mean values are shown as u=mean value. Asterisk (*) nevarez values outside specified normal range. Prepared and signed by John De La Rosa [id number]
== END 2016-07-26 18:37 | disposition home or self-care (01) ==
LOC: NEPE 00:31 → NEDA 03:29 → INTOOBSV 03:29 → NEDH 12:51 → NEPFCDU 15:44
PROVIDERS: ADMIT Hospitalist; ATTEND Hospitalist
DX: R55 Syncope and collapse (principal); I48.91 Unspecified atrial fibrillation; N28.9 Disorder of kidney and ureter, unspecified; R56.9 Unspecified convulsions; I10 Essential (primary) hypertension; E78.5 Hyperlipidemia, unspecified
CPT/HCPCS: 70450; 71010; 78452; 80048; 80307; 82550; 82552; 83735; 84443; 84484; 85025; 85610; 85730; 93005; 93017; 93306; 93880; 95819; 96374; 99285; A9502; G0378; J2785; 80320